=== PATIENT | male | born 1980 | race Caucasian/White ===

== ENCOUNTER 2022-08-18 19:42 | Emergency (ER) | payer SELFPAY ==
[~2022-08-18] VITALS: Ht 170.2 cm; Wt 86.2 kg
--- NOTE | 2022-08-18 19:42 | NUR ---
PT AUREA TANNER, PREBOOK. TAKEN TO ER CHAIR
[2022-08-18 19:43] VITALS: BP 159/111
--- NOTE | 2022-08-18 20:14 | NUR ---
Dr. Jesus examining patient.
[2022-08-18] MEDS ORDERED: CLONIDINE HYDROCHLORIDE 0.1 MG TAB PO ONE (20:20)
[2022-08-18 20:53] VITALS: BP 143/97
--- NOTE | 2022-08-18 20:53 | NUR ---
PATIENT BIB [employer]. PATIENT EXAMINED BY DR. phillips. PATIENT MEDICALLY CLEARED AND RELEASED IN CUSTODY IN STABLE CONDITION. ORIGINAL PRE-BOOK FORM GIVEN TO OFFICER elise. PT SIGNED AMA.
== END 2022-08-18 20:53 ==
LOC: MED 19:42
DX: I10 Essential (primary) hypertension (principal); Z79.899 Other long term (current) drug therapy
CPT/HCPCS: 93005; 99283